=== PATIENT | female | born 1985 | race Caucasian/White ===

== ENCOUNTER 2016-12-10 11:09 | Inpatient (IN) | payer OTHER ==
[~2016-12-10] VITALS: Ht 157.5 cm; Wt 114.0 kg
[2016-12-10] VITALS (35 sets, daily range): BP systolic 116–151; BP diastolic 56–95
[2016-12-10] MEDS ORDERED: TUMS500C PO (11:39)
[2016-12-10] MEDS ORDERED: PRENTAB9 PO (11:39)
[2016-12-10] MEDS ORDERED: ZYRT10CA PO (11:39)
[2016-12-10] MEDS ORDERED: LR 1,000 ML IV SCH (13:00)
[2016-12-10] MEDS ORDERED: OXYTOCIN DRIP 30 UNITS in APPROPRIATE DILUENT 1 EA IV SCH (13:00)
[2016-12-10 14:39] LABS: BASO % 0.1 % (0.0-1.0); EOS % 0.2 % (0.0-3.0); LARGE UNSTAINED CELL # 0.2 K/mm3 (0.0-0.4); LARGE UNSTAINED CELL % 1.9 % (0.0-4.0); LYMPH % 24.5 % (24.0-44.0); MEAN CORPUSCULAR HEMOGLOBIN 32.5 pg (27.0-33.0); MEAN CORPUSCULAR HGB CONC 34.7 g/dl (32.0-36.5); MEAN CORPUSCULAR VOLUME 93.6 fl (80.0-96.0); MONO # 0.4 K/mm3 (0.0-0.8); MONO % 4.9 % (0.0-5.0); NEUTROPHILS # 5.5 K/mm3 (1.8-7.7); NEUTROPHILS % 68.3 % (36.0-66.0); PLATELET COUNT, AUTOMATED 128 k/mm3 (150-450); RED CELL DISTRIBUTION WIDTH 13.8 % (11.5-14.5); WHITE BLOOD COUNT 8.1 K/mm3 (4.0-10.0)
[2016-12-10 14:54] LABS: ALT/SGPT 12 U/L (12-78); AST/SGOT 17 U/L (15-37); BILIRUBIN,TOTAL 0.2 MG/DL (0.2-1.0); CREATININE FOR GFR 0.53 MG/DL (0.55-1.02); GLOMERULAR FILTRATION RATE > 60.0 (>60); URIC ACID 4.8 MG/DL (2.6-6.0)
--- NOTE | 2016-12-10 21:00 | IPNPDOC ---
Text Note Date of Service The patient was seen on 12/10/16. NOTE SBAR from MAJ Cloud at ~1930. Pt states feeling well. Chart and H&P reviewed. Proven to ~9.5 lbs. NST Cat 1, mod thien and pos accels. Cx 5/80/-2/ ballotable, fingers in front of the cx. States wants an epidural, will likely get this after AROM. Recheck in 2 hrs, sooner prn. Sessions VS,Luara, I+O VSLaura I+O Laboratory Tests 12/10/16 13:49 Red Blood Count 3.76 L, Mean Corpuscular Volume 93.6, Mean Corpuscular Hemoglobin 32.5, Mean Corpuscular Hemoglobin Concent 34.7, Red Cell Distribution Width 13.8, Neutrophils (%) (Auto) 68.3 H, Lymphocytes (%) (Auto) 24.5, Monocytes (%) (Auto) 4.9, Eosinophils (%) (Auto) 0.2, Basophils (%) (Auto ) 0.1, Neutrophils # (Auto) 5.5, Lymphocytes # (Auto) 2.0, Monocytes # (Auto) 0.4, Eosinophils # (Auto) 0.0, Basophils # (Auto) 0.0, Aspartate Amino Transf ( AST/SGOT) 17, Alanine Aminotransferase (ALT/SGPT) 12, Lactate Dehydrogenase 217 , Total Bilirubin 0.2, Uric Acid 4.8 Vital Signs Date Time Temp Pulse Resp B/P (MAP) Pulse Ox O2 Delivery O2 Flow Rate FiO2 12/10/16 18:50 99.5 86 20 133/76 (95) SESSIONS,TIMOTHY Muniz MD Dec 10, 2016 21:00
[2016-12-10] MEDS ORDERED: FENTANYL 2MCG/ML ROPIVACAINE 0.2% IN 0.9% NACL 200ML IVBAG As Ordered ONE (21:36)
--- NOTE | 2016-12-10 23:31 | IPNPDOC ---
Text Note Date of Service The patient was seen on 12/10/16. NOTE NST Cat 2 after the epidural but with IU resusc measures able to regain Cat 1 tracing. Pit at 16 mu/min. Cx 6/80/-1, SROM with digital check, clr. Plan on recheck in 2 hrs, sooner prn. Sessions VS,Laura, I+O VSLaura I+O Laboratory Tests 12/10/16 13:49 Red Blood Count 3.76 L, Mean Corpuscular Volume 93.6, Mean Corpuscular Hemoglobin 32.5, Mean Corpuscular Hemoglobin Concent 34.7, Red Cell Distribution Width 13.8, Neutrophils (%) (Auto) 68.3 H, Lymphocytes (%) (Auto) 24.5, Monocytes (%) (Auto) 4.9, Eosinophils (%) (Auto) 0.2, Basophils (%) (Auto ) 0.1, Neutrophils # (Auto) 5.5, Lymphocytes # (Auto) 2.0, Monocytes # (Auto) 0.4, Eosinophils # (Auto) 0.0, Basophils # (Auto) 0.0, Aspartate Amino Transf ( AST/SGOT) 17, Alanine Aminotransferase (ALT/SGPT) 12, Lactate Dehydrogenase 217 , Total Bilirubin 0.2, Uric Acid 4.8 Vital Signs Date Time Temp Pulse Resp B/P (MAP) Pulse Ox O2 Delivery O2 Flow Rate FiO2 12/10/16 21:21 99.0 69 17 143/68 (93) SESSIONS,TIMOTHY Muniz MD Dec 10, 2016 23:31
[2016-12-10] MEDS ORDERED: diphenhydrAMINE INJ 50MG/ML VIAL (J1200) IV PRN (23:45)
[2016-12-10] MEDS ORDERED: NALOXONE INJ 0.4 MG/1 ML VIAL (J2310) IV PRN (23:45)
[2016-12-10] MEDS ORDERED: LACTATED RINGER'S 1000 ML IV PRN (23:45)
[2016-12-10] MEDS ORDERED: EPIDURAL/PCA KEYS XX PRN (23:45)
[2016-12-10] MEDS ORDERED: ePHEDrine SULFATE 25 MG/5 ML(5MG/ML) SYRINGE IV PRN (23:45)
[2016-12-10] MEDS ORDERED: FENTANYL/ROPIVACAINE/NACL BAG 200 ML EPIDURAL SCH (23:45)
[2016-12-10] MEDS ORDERED: ONDANSETRON 4MG/2ML VIAL (J2405) IV PRN (23:45)
[2016-12-10] MEDS ORDERED: EPIDURAL COMMENT XX SCH (23:45)
[2016-12-10] MEDS ORDERED: REFRIGERATOR IV KEYS XX PRN (23:45)
[2016-12-11] VITALS (14 sets, daily range): BP systolic 112–166; BP diastolic 56–85
[2016-12-11] MEDS ORDERED: LIDOCAINE 1% MDV INJ 50 ML VIAL As Ordered ONE (02:17)
[2016-12-11] MEDS ORDERED: OXYTOCIN DRIP 30 UNITS in APPROPRIATE DILUENT 1 EA IV SCH ×4 (02:43)
[2016-12-11] MEDS ORDERED: METOCLOPRAMIDE INJ 10MG/2ML VIAL (J2765) IV PRN (02:45)
[2016-12-11] MEDS ORDERED: LIDOCAINE 1% MDV INJ 50 ML VIAL INFIL ONE (02:45)
[2016-12-11] MEDS ORDERED: ACETAMINOPHEN TAB 650MG DOSE (2X325MG) PO PRN (02:45)
[2016-12-11] MEDS ORDERED: RHOGAM 300 MCG (1500 IU) INJ (J2790) IM SCH (02:45)
[2016-12-11] MEDS ORDERED: DIBUCAINE 1% OINTMENT 30GM TOP PRN (02:45)
[2016-12-11] MEDS ORDERED: MEASLES,MUMPS,RUBELLA VACCINE INJ (MMR-II) (90707) SC SCH (02:45)
[2016-12-11 03:08] LABS: CORD GAS ABE A -5.3; CORD GAS HCO3 A 22.4 MEQ/L; CORD GAS O2 SAT A 41.4 %; CORD GAS PCO2 A 51.6 mmHg; CORD GAS PH A 7.255 UNITS; CORD GAS PO2 A 21.5 mmHg; CORD GAS SBC A 18.8 MEQ/L
[2016-12-11 03:09] LABS: CORD GAS ABE V -3.8; CORD GAS HCO3 V 21.6 MEQ/L; CORD GAS PCO2 V 40.4 mmHg; CORD GAS PH V 7.346 UNITS; CORD GAS PO2 V 28.3 mmHg; CORD GAS SBC V 20.6 MEQ/L; CORD GAS TCO2 V 22.8 MEQ/L
[2016-12-11] MEDS: IBUPROFEN 800 MG TAB PO PRN ×2 (03:11→21:06)
--- NOTE | 2016-12-11 03:11 | DNPDOC ---
[facility] Delivery Note Delivery Note DATE OF DELIVERY: [id number] at 0140 PREDELIVERY DIAGNOSIS: 41 2/7 weeks' gestation and labor. POST DELIVERY DIAGNOSIS: Delivered. PROCEDURE: Shoulder dystocia, 2 min CARDIAC REHABILITATION PROGRAM DIRECTOR: Dr. Mendez ANESTHESIA: Epidural ESTIMATED BLOOD LOSS: 400 mL. FINDINGS: 11 pound 3ounce male , Score 1/5/9, loose nuchal cord x1. DELIVERY SUMMARY: Called to room, cx gone and pushed very well. Signif turtling noted and already suspected macrosomia, planned with RN's for McRobert' s and brought bed down in case of need for suprapubic pressure. Vtx del'd very tight fit but no molding present. Ant shoulder stuck and after 30 sec of gentle downward pressure, called a dystocia and clock started and help called for, along with Ana and suprapubic pressure started. Tried to do a [place]- not successful, episiotomy cut and posterior arm grasped and tried to deliver but not successful either, however noted at this point that the post shoulder was delivered. Gentle downward traction helped to deliver the anterior shoulder and obviously stunned delivered. Very thick cord C/C and baby to warmer. Very large male. Cord gasses obtained, pending currently. Slight traction and fundal massage affected a very large placenta, intact. Pit going wide open, fundal massage. 4th degree lac noted, mucosa repaired with running 4-0 vicryl. Capsule repaired with 5 interrupted sutures at 12, 6, 2, 4, 9 using 2-0 vicryl. 3-0 vicryl used to then close the rest of the lac in standard fashion, good cosmesis/hemostasis. See baby chart for resuscitation/ care/exam of the infant. Sessions MD MENDEZ,TIMOTHY Muniz MD Dec 11, 2016 03:11
[2016-12-11] MEDS: PRENATAL VITAMINS CHEWABLE TABLET PO SCH (09:09)
[2016-12-11] MEDS: DOCUSATE SODIUM 100 MG CAP PO SCH ×2 (09:09→21:05)
--- NOTE | 2016-12-11 09:42 | IPN ---
DATE: 12/11/2016 This lady requested circumcision of her male . After discussing the risks and benefits of circumcision, the medical and nonmedical indications, penile block and aftercare, expressed understanding of penile block and aftercare, answered all questions, we now await the clearance by the cleaner carpet and upholstery.
[2016-12-11] MEDS ORDERED: INFLUENZA QUADRIVALENT PF VACCINE 0.5ML SYRINGE (90686) IM SCH (13:00)
[2016-12-12 06:10] VITALS: BP 121/67
[2016-12-12] MEDS: DOCUSATE SODIUM 100 MG CAP PO SCH (08:57)
[2016-12-12] MEDS: PRENATAL VITAMINS CHEWABLE TABLET PO SCH (08:57)
[2016-12-12] MEDS ORDERED: INFLUENZA QUADRIVALENT PF VACCINE 0.5ML SYRINGE (90686) IM ONE (09:00)
[2016-12-12] MEDS ORDERED: ACET50TA PO (10:42)
[2016-12-12] MEDS ORDERED: NUPE1OIN2 TOP (10:42)
[2016-12-12] MEDS ORDERED: IBUP-1114 PO (10:42)
[2016-12-12] MEDS ORDERED: COLA100C5 PO (10:42)
--- NOTE | 2016-12-12 18:05 | DSES ---
DATE OF ADMISSION: 12/10/2016 DATE OF DISCHARGE: 12/12/2016 This lady is a 4, para 2, was admitted for induction of labor at term because of growth is greater than 90th percentile. She had an epidural in place, delivered a live male weighing 11 pounds 3 ounces. scores of 1, 5 and 9. She sustained a fourth degree tear. The arterial blood gas was 7.25, base excess -5.3, venous pH was 7.34, base excess -3.8. Hemoglobin was 12.1, hematocrit 35.2 and platelets were 128. On discharge, we discussed phlebitis, cystitis, mastitis, endometritis and cellulitis, diet, exercise, pain management, perineal breast and wound care. Her temperature today is 90.1, pulse 90, respirations 22, blood pressure is 140/64. The rest of the examination is unremarkable. She is normocephalic, atraumatic. NECK: Full range of motion. Pupils equal and reactive to light. Her distal pulses are symmetric. No evidence of deep venous thrombosis (DVT), pulmonary embolism (PE), or superficial phlebitis. CHEST: Clear to the bases with no wheezes or rhonchi. No costovertebral angle (CVA) tenderness. Uterus is two below. Lochia is moderate. Perineum is healing with her fourth degree tear. She is passing gas and had a bowel movement and has had no soilage through the vagina. No rashes, lesions or pruritus. No arthralgia, myalgia. No complaints of cough, wheezes, shortness of breath or dyspnea on exertion. No chest pain. No bleeding. Neuro complete. No incontinence, urgency or frequency. No nausea, vomiting, diarrhea or constipation. No diabetic issues. The past gynecological ([employer]IC[employer] W[employer]), medical and surgical history is unremarkable. Family history is noncontributory. She does not smoke, drink abuse drugs. There is no domestic violence. She is to a soldier, has good support systems. IN SUMMARY: We have a term gestation delivered a macrosomic infant with fourth degree tear. Medications were dispensed. The patient is requesting the minipill for control.
== END 2016-12-12 14:50 | disposition home or self-care (01) | DRG 775 ==
LOC: M LDI 11:09 → M OBS 12-11 06:01
PROVIDERS: ADMIT Obstetrics & Gynecology; ATTEND Obstetrics & Gynecology
PROC: 3E0P7GC Introduction of Other Therapeutic Substance into Female Reproductive, Via Natural or Artificial Opening (ICD-10-PCS; 2016-12-10)
PROC: 10E0XZZ Delivery of Products of Conception, External Approach (ICD-10-PCS; principal; 2016-12-11)
PROC: 0DQP0ZZ Repair Rectum, Open Approach (ICD-10-PCS; 2016-12-11)
DX: O48.0 Post-term pregnancy (principal); O70.3 Fourth degree perineal laceration during delivery; O99.214 Obesity complicating childbirth; Z3A.41 41 weeks gestation of pregnancy; E66.9 Obesity, unspecified; O36.63X0 Maternal care for excessive fetal growth, third trimester, not applicable or unspecified; O66.0 Obstructed labor due to shoulder dystocia; Z37.0 Single live birth

== ENCOUNTER 2018-03-09 06:55 | Inpatient (IN) | payer OTHER ==
[2018-03-09 09:25] LABS: HEMATOCRIT 38.2 % (36.0-47.0); HEMOGLOBIN 12.6 g/dl (12.0-15.5); MEAN CORPUSCULAR HEMOGLOBIN 30.4 pg (27.0-33.0); PLATELET COUNT, AUTOMATED 151 10^3/uL (150-450); RED BLOOD COUNT 4.15 10^6/uL (4.00-5.40); RED CELL DISTRIBUTION WIDTH 13.2 % (11.5-14.5); WHITE BLOOD COUNT 9.2 10^3/uL (4.0-10.0)
[2018-03-09] MEDS: OXYTOCIN DRIP 30 UNITS in APPROPRIATE DILUENT 1 EA IV ×2 (10:28→23:29)
[2018-03-09] MEDS: LR 1,000 ML IV ×3 (10:28→21:24)
[2018-03-09] MEDS: PENICILLIN G POTASSIUM IV 5 MU in D5W MINI-BAG PLUS 100 ML IV (12:55)
[2018-03-09] MEDS ORDERED: PENICILLIN G POTASSIUM IV 2.5 MU in APPROPRIATE DILUENT 1 EA IV (13:15)
[2018-03-09] MEDS: PENICILLIN G POTASSIUM IV 2.5 MU in APPROPRIATE DILUENT 1 EA IV ×2 (16:57→21:22)
[2018-03-09] MEDS: LR 800 ML IV (18:29)
[2018-03-09] MEDS ORDERED: FENTANYL 2MCG/ML ROPIVACAINE 0.2% IN 0.9% NACL 100ML IVBAG As Ordered (19:01)
[2018-03-09] MEDS: FENTANYL/ROPIVACAINE/NACL BAG 100 ML EPIDURAL ×2 (19:27→21:36)
[2018-03-09] MEDS ORDERED: EPIDURAL/PCA KEYS XX (20:15)
[2018-03-09] MEDS ORDERED: ONDANSETRON 4MG/2ML VIAL (J2405) IV (20:15)
[2018-03-09] MEDS ORDERED: LACTATED RINGER'S 1000 ML IV (20:15)
[2018-03-09] MEDS ORDERED: EPIDURAL COMMENT XX (20:15)
[2018-03-09] MEDS ORDERED: ePHEDrine SULFATE 25 MG/5 ML(5MG/ML) SYRINGE IV (20:15)
[2018-03-09] MEDS ORDERED: REFRIGERATOR IV KEYS XX (20:15)
[2018-03-09] MEDS ORDERED: NALOXONE INJ 0.4 MG/1 ML VIAL (J2310) IV (20:15)
[2018-03-09] MEDS ORDERED: diphenhydrAMINE INJ 50MG/ML VIAL (J1200) IV (20:15)
[2018-03-09] MEDS ORDERED: METHYLERGONOVINE MALEATE 0.2 MG TAB PO (23:45)
[2018-03-09] MEDS ORDERED: DIBUCAINE 1% OINTMENT 30GM TOP (23:45)
[2018-03-09] MEDS ORDERED: ACETAMINOPHEN 500 MG TAB PO (23:45)
[2018-03-09] MEDS ORDERED: MOM 30ML SUSPENSION UDC PO (23:45)
[2018-03-09] MEDS ORDERED: RHOGAM 300 MCG (1500 IU) INJ (J2790) IM (23:45)
[2018-03-09] MEDS ORDERED: MEASLES,MUMPS,RUBELLA VACCINE INJ (MMR-II) (90707) SC (23:45)
[2018-03-09] MEDS ORDERED: DOCUSATE SODIUM 100 MG CAP PO (23:45)
[2018-03-09] MEDS ORDERED: ANUSOL HC CREAM 30GM TOP (23:45)
[2018-03-09 23:59] LABS: CORD GAS ABE V -2.5; CORD GAS HCO3 V 22.9 MEQ/L; CORD GAS O2 SAT V 71.4 %; CORD GAS PCO2 V 41.8 mmHg; CORD GAS PH V 7.357 UNITS; CORD GAS PO2 V 28.7 mmHg; CORD GAS SBC V 21.7 MEQ/L; CORD GAS TCO2 V 24.2 MEQ/L
[2018-03-10] LABS: CORD GAS ABE A -3.8; CORD GAS O2 SAT A 63.3 %; CORD GAS PCO2 A 38.1 mmHg; CORD GAS PO2 A 25.7 mmHg; CORD GAS SBC A 20.4 MEQ/L; CORD GAS TCO2 A 22.2 MEQ/L
[2018-03-10] MEDS: IBUPROFEN 800 MG TAB PO ×2 (00:50→08:40)
[2018-03-10] MEDS: OXYTOCIN INJ 10 UNITS/ML VIAL (J2590) IV (04:45)
[2018-03-10 06:29] LABS: HEMATOCRIT 33.7 % (36.0-47.0); HEMOGLOBIN 10.9 g/dl (12.0-15.5); MEAN CORPUSCULAR HEMOGLOBIN 29.9 pg (27.0-33.0); MEAN CORPUSCULAR HGB CONC 32.3 g/dl (32.0-36.5); MEAN CORPUSCULAR VOLUME 92.3 fl (80.0-96.0); PLATELET COUNT, AUTOMATED 131 10^3/uL (150-450); RED BLOOD COUNT 3.65 10^6/uL (4.00-5.40); RED CELL DISTRIBUTION WIDTH 13.2 % (11.5-14.5)
[2018-03-10] MEDS: PRENATAL VITAMINS CHEWABLE TABLET PO (08:39)
[2018-03-11] MEDS: PRENATAL VITAMINS CHEWABLE TABLET PO (07:42)
== END 2018-03-11 11:25 | disposition home or self-care (01) | DRG 807 ==
LOC: M LDI 06:55 → M OBS 03-10 02:03
PROVIDERS: Obstetrics & Gynecology
PROC: 10E0XZZ Delivery of Products of Conception, External Approach (ICD-10-PCS; principal; 2018-03-09)
PROC: 3E033VJ Introduction of Other Hormone into Peripheral Vein, Percutaneous Approach (ICD-10-PCS; 2018-03-09)
DX: O24.420 Gestational diabetes mellitus in childbirth, diet controlled (principal); Z37.0 Single live birth; O99.824 Streptococcus B carrier state complicating childbirth; Z3A.38 38 weeks gestation of pregnancy; O99.214 Obesity complicating childbirth; E66.9 Obesity, unspecified; Z68.38 Body mass index [BMI] 38.0-38.9, adult